=== PATIENT | female | born 1970 | race African-American/Black ===

== ENCOUNTER 2018-03-10 12:48 | Emergency (ER) | payer BC, MEDICAID ==
[~2018-03-10] VITALS: Ht 170.2 cm; Wt 111.9 kg
[~2018-03-10 12:48] MED LIST: HYDR25TA6 PO; IBUP-1223 PO; LOSA1TAB22 PO; MEDR10TA3 PO; OXYC-293 PO; SENN-87 PO
[2018-03-10 12:51] VITALS: BP 152/106
[2018-03-10] MEDS ORDERED: HYDROcodone/APAP 5/325 TABLET ONE (13:23)
[2018-03-10] MEDS ORDERED: KETOROLAC 30 MG/1 ML ONE (13:23)
[2018-03-10] MEDS ORDERED: CYCLOBENZAPRINE 10 MG TABLET ONE (13:23)
[2018-03-10] MEDS ORDERED: ONDANSETRON ODT 4 MG ONE (13:24)
[2018-03-10] MEDS ORDERED: ONDANSETRON ODT 4 MG PO ONE (13:30)
[2018-03-10] MEDS ORDERED: HYDROcodone/APAP 5/325 TABLET PO ONE (13:30)
[2018-03-10] MEDS ORDERED: CYCLOBENZAPRINE 10 MG TABLET PO ONE (13:30)
[2018-03-10] MEDS ORDERED: KETOROLAC 30 MG/1 ML IM ONE (13:30)
== END 2018-03-10 14:15 ==
LOC: ED 14:09
DX: S39.012A Strain of muscle, fascia and tendon of lower back, initial encounter (principal); F17.200 Nicotine dependence, unspecified, uncomplicated; I10 Essential (primary) hypertension; M54.42 Lumbago with sciatica, left side; X58.XXXA Exposure to other specified factors, initial encounter; Y93.89 Activity, other specified; Y92.89 Other specified places as the place of occurrence of the external cause; Y99.8 Other external cause status
CPT/HCPCS: 72110; 96372; 99284; J1885; Q0162

== ENCOUNTER 2018-04-14 11:57 | Emergency (ER) | payer BC ==
[~2018-04-14] VITALS: Ht 170.2 cm; Wt 110.0 kg
[2018-04-14 13:27] VITALS: BP 120/84
[2018-04-14 13:39] LABS: BASOPHILS # (AUTO) 0.06 x10^3/uL (0-0.1); BASOPHILS % (AUTO) 1 % (0-1); EOSINOPHILS # (AUTO) 0.15 x10^3/uL (0-0.4); EOSINOPHILS % (AUTO) 2 % (1-7); LYMPHOCYTES % (AUTO) 25 % (22-44); MD NO; MEAN CORPUSCULAR HEMOGLOBIN 27.8 pg (27.0-34.8); MEAN CORPUSCULAR HGB CONC 33.5 g/dL (32.4-35.8); MEAN CORPUSCULAR VOLUME 83.2 fL (80-100); MEAN PLATELET VOLUME 9.7 fL (7.4-10.4); MONOCYTES # (AUTO) 0.63 x10^3/uL (0.2-0.8); MONOCYTES % (AUTO) 8 % (2-9); NEUTROPHILS # (AUTO) 5.45 x10^3/uL (1.8-6.8); NEUTROPHILS % (AUTO) 65 % (42-75); PLATELET COUNT 158 x10^3/uL (130-400); RED BLOOD COUNT 5.11 x10^6/uL (3.82-5.3); RED CELL DISTRIBUTION WIDTH 14.2 % (9.6-15.2)
[2018-04-14 13:49] LABS: ALBUMIN 3.2 g/dL (3.4-5.0); ANION GAP 9 mmol/L (5-15); CALCIUM 8.2 mg/dL (8.5-10.1); CHLORIDE 106 mmol/L (98-107); CREATININE 1.16 mg/dL (0.55-1.02)
== END 2018-04-14 14:50 | disposition home or self-care (01) ==
LOC: ED 12:14
DX: N93.8 Other specified abnormal uterine and vaginal bleeding (principal); I10 Essential (primary) hypertension; F17.200 Nicotine dependence, unspecified, uncomplicated; Z88.0 Allergy status to penicillin; Z91.013 Allergy to seafood; Z88.8 Allergy status to other drugs, medicaments and biological substances
CPT/HCPCS: 36415; 76830; 80048; 82040; 84703; 85025; 99285

== ENCOUNTER 2019-07-14 09:10 | Emergency (ER) | payer BC ==
[~2019-07-14] VITALS: Ht 170.2 cm; Wt 109.0 kg
[~2019-07-14 09:10] MED LIST changes: -SENN-87 PO; +SENN-88 PO
[2019-07-14 10:10] LABS: BASOPHILS # (AUTO) 0.06 x10^3/uL (0-0.1); BASOPHILS % (AUTO) 1 % (0-1); EOSINOPHILS # (AUTO) 0.27 x10^3/uL (0-0.4); EOSINOPHILS % (AUTO) 3 % (1-7); LYMPHOCYTES # (AUTO) 2.03 x10^3/uL (1-3.4); LYMPHOCYTES % (AUTO) 23 % (22-44); MD NO; MEAN CORPUSCULAR HEMOGLOBIN 27.4 pg (27.0-34.8); MEAN CORPUSCULAR HGB CONC 32.4 g/dL (32.4-35.8); MEAN CORPUSCULAR VOLUME 84.5 fL (80-100); MEAN PLATELET VOLUME 9.9 fL (7.4-10.4); MONOCYTES # (AUTO) 0.47 x10^3/uL (0.2-0.8); MONOCYTES % (AUTO) 5 % (2-9); NEUTROPHILS % (AUTO) 68 % (42-75); PLATELET COUNT 169 x10^3/uL (130-400); RED BLOOD COUNT 5.15 x10^6/uL (3.82-5.3); RED CELL DISTRIBUTION WIDTH 14.1 % (9.6-15.2)
[2019-07-14 10:20] LABS: ALANINE AMINOTRANSFERASE 15 U/L (12-78); ALBUMIN 3.3 g/dL (3.4-5.0); ANION GAP 8 mmol/L (5-15); CALCIUM 8.4 mg/dL (8.5-10.1); CHLORIDE 106 mmol/L (98-107); CREATININE 0.82 mg/dL (0.55-1.02)
[2019-07-14 10:24] LABS: ALKALINE PHOSPHATASE 93 U/L (45-117); BILIRUBIN,TOTAL 0.3 mg/dL (0.2-1.0); TOTAL PROTEIN 7.3 g/dL (6.4-8.2)
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
[2019-07-14] MEDS ORDERED: METO25TA35 PO (10:44)
[2019-07-14] MEDS ORDERED: ONDANSETRON ODT 4 MG ONE (10:51)
[2019-07-14] MEDS ORDERED: IBUPROFEN 600 MG TABLET ONE (10:51)
--- NOTE | 2019-07-14 10:56 | NUR ---
MEDICATED PER EMAR
[2019-07-14] MEDS ORDERED: IBUPROFEN 200 MG TABLET PO ONE (11:00)
[2019-07-14] MEDS ORDERED: ONDANSETRON ODT 4 MG PO ONE (11:00)
--- NOTE | 2019-07-14 11:02 | NUR ---
RECEIVED BEDSIDE REPORT FROM RIAZ RAYA, CARE ASSUMED. PT RESTING IN POSITION OF COMFORT WATCHING TV. REPORTS NAUSEA IMPROVING FROM ARRIVAL AND "THE MOTRIN IS HELPING THE PAIN." RATES "CRAMPING" PAIN 4-10/22. AWAITING US. LABS & UA PENDING. CALL LIGHT IN REACH. FALL PRECAUTIONS IN PLACE. A&OX4.
[2019-07-14 11:17] LABS: CULTURE INDICATED? YES; MICROSCOPIC INDICATED
--- NOTE | 2019-07-14 11:25 | NUR ---
PT IN US
--- NOTE | 2019-07-14 11:43 | NUR ---
PT BACK FROM US. RESTING COMFORTABLY. VSS. PULSE OX 96% RA. DR. SEYMOUR AT BEDSIDE FOR EVALUATION
--- NOTE | 2019-07-14 12:17 | NUR ---
DR. SEYMOUR AT BEDSIDE FOR RECHECK, DISCUSSING RESULTS AND POC, PT CLEARED FOR DISCHARGE. GIVEN DISCHARGE INSTRUCTIONS, VERBALIZED UNDERSTANDING, HANDOUTS & WORK NOTE IN HAND. PT AMBULATED TO CHECKOUT DESK WITH STEADY GAIT
[2019-07-14 12:18] VITALS: BP 135/96
== END 2019-07-14 12:30 | disposition home or self-care (01) ==
LOC: ED 12:24
DX: N92.1 Excessive and frequent menstruation with irregular cycle (principal); N93.8 Other specified abnormal uterine and vaginal bleeding; I10 Essential (primary) hypertension
CPT/HCPCS: 36415; 76830; 80053; 81001; 84703; 85025; 87086; 99284; Q0162

== ENCOUNTER → 2020-08-01 | Outpatient (CLI) | payer BC ==
[~2020-08-01] MED LIST changes: +CHOL10003 PO; +METO25TA35 PO; +SENN-190 PO; -SENN-88 PO; +medroxyprogesterone PO
[2020-08-01 11:43] LABS: BASOPHILS % (AUTO) 1 % (0-1); EOSINOPHILS % (AUTO) 2 % (1-7); LYMPHOCYTES % (AUTO) 26 % (22-44); MEAN CORPUSCULAR HEMOGLOBIN 25.4 pg (27.0-34.8); MEAN CORPUSCULAR HGB CONC 32.4 g/dL (32.4-35.8); MEAN PLATELET VOLUME 9.3 fL (7.4-10.4); MONOCYTES % (AUTO) 9 % (2-9); NEUTROPHILS % (AUTO) 62 % (42-75); PLATELET COUNT 196 x10^3/uL (130-400); RED BLOOD COUNT 5.33 x10^6/uL (3.82-5.3); RED CELL DISTRIBUTION WIDTH 15.4 % (9.6-15.2)
[2020-08-01 11:46] LABS: ALANINE AMINOTRANSFERASE 27 U/L (12-78); ALBUMIN 3.6 g/dL (3.4-5.0); ANION GAP 7 mmol/L (5-15); CALCIUM 9.3 mg/dL (8.5-10.1); CHLORIDE 107 mmol/L (98-107)
[2020-08-01 11:48] LABS: MD NO
[2020-08-01 11:51] LABS: ALKALINE PHOSPHATASE 84 U/L (45-117); BILIRUBIN,TOTAL 0.4 mg/dL (0.2-1.0); CREATININE 0.73 mg/dL (0.55-1.02); TOTAL PROTEIN 7.6 g/dL (6.4-8.2)
== END | disposition home or self-care (01) ==
LOC: STAR 10:41
PROVIDERS: ATTEND Obstetrics & Gynecology
DX: Z01.812 Encounter for preprocedural laboratory examination (principal); Z20.822 Contact with and (suspected) exposure to COVID-19; N93.9 Abnormal uterine and vaginal bleeding, unspecified; N92.0 Excessive and frequent menstruation with regular cycle
CPT/HCPCS: 71046; 80053; 84703; 85025; 87635; 93005

== ENCOUNTER 2020-08-07 11:46 | Day surgery (SDC) | payer BC ==
[~2020-08-07] VITALS: Ht 170.2 cm; Wt 110.6 kg
[2020-08-07 12:23] VITALS: BP 114/80
[2020-08-07 12:28] LABS: HCG UR SG 1.022 (1.003-1.030)
[2020-08-07] MEDS ORDERED: CHLORHEXIDINE 15 ML UDC MM ONE (12:30)
[2020-08-07] MEDS ORDERED: LIDOCAINE-MPF 1%, 2ML INFIL ONE (12:30)
[2020-08-07] MEDS ORDERED: LACTATED RINGERS 1,000 ML IV SCH (12:30)
[2020-08-07] MEDS ORDERED: FENTANYL PF 100 MCG/2ML ONE ×2 (14:28→15:48)
[2020-08-07] MEDS ORDERED: MIDAZOLAM 1 MG/ML, 2ML ONE (14:28)
[2020-08-07] MEDS ORDERED: SILVER NITRATE STICK TP ONE (14:52)
[2020-08-07] MEDS ORDERED: EPINEPHRINE 1 MG/ML, 1ML ONE (14:52)
[2020-08-07] MEDS ORDERED: BUPIVACAINE/PF 0.25% ONE (14:52)
[2020-08-07] MEDS ORDERED: CEFAZOLIN 1,000 MG ONE (15:10)
[2020-08-07] MEDS ORDERED: DEXAMETHASONE 4 MG/ML, 1ML ONE (15:10)
[2020-08-07] MEDS ORDERED: PROPOFOL 10 MG/ML, 20ML ONE (15:10)
[2020-08-07] MEDS ORDERED: KETOROLAC 30 MG/1 ML ONE (15:10)
[2020-08-07] MEDS ORDERED: ONDANSETRON 2MG/ML, 2ML ONE (15:10)
[2020-08-07] MEDS ORDERED: FENTANYL PF 100 MCG/2ML IV PRN (15:30)
[2020-08-07] MEDS ORDERED: ACETAMINOPHEN 325 MG TABLET PO PRN (15:30)
[2020-08-07] MEDS ORDERED: MEPERIDINE/PF 25MG/0.5ML IVPush PRN (15:30)
[2020-08-07] MEDS ORDERED: OXYcodone 5 MG/5 ML ORAL.SOL UDC PO PRN (15:30)
[2020-08-07] MEDS ORDERED: PROMETHAZINE 25 MG/ML, 1ML IVPush PRN (15:30)
[2020-08-07] MEDS ORDERED: OXYcodone 5 MG/5 ML ORAL.SOL UDC ONE (15:48)
== END 2020-08-07 18:50 | disposition home or self-care (01) ==
LOC: OUT 11:46
PROVIDERS: ATTEND Obstetrics & Gynecology
DX: N93.9 Abnormal uterine and vaginal bleeding, unspecified (principal); N84.0 Polyp of corpus uteri; I10 Essential (primary) hypertension; Z79.899 Other long term (current) drug therapy; Z88.0 Allergy status to penicillin; Z88.8 Allergy status to other drugs, medicaments and biological substances; Z91.013 Allergy to seafood; Z90.49 Acquired absence of other specified parts of digestive tract
CPT/HCPCS: 58558; 81025; 88305; J0171; J0690; J1100; J1885; J2250; J2405; J2704; J3010; J7120

== ENCOUNTER 2021-02-03 01:32 | Emergency (ER) | payer BC ==
[~2021-02-03] VITALS: Ht 170.2 cm; Wt 111.5 kg
[2021-02-03 01:50] VITALS: BP 163/106
== END 2021-02-03 03:41 | disposition left against medical advice (07) ==
LOC: ED 01:40
DX: R04.0 Epistaxis (principal); R05 Cough; R94.31 Abnormal electrocardiogram [ECG] [EKG]; Z53.21 Procedure and treatment not carried out due to patient leaving prior to being seen by health care provider
CPT/HCPCS: 93005